=== PATIENT | female | born 1975 | race African-American/Black ===

== ENCOUNTER 2018-07-10 08:41 | Inpatient (IN) | payer BC, OTHER ==
[~2018-07-10 08:41] MED LIST: ROCURONIUM 50 MG INJ
[2018-07-10] MEDS ORDERED: POLYMYXIN/BACITRACIN 1L IRRIG (11:45)
[2018-07-10] MEDS: ALBUTEROL 0.083% (NEB) 2.5 MG/3 ML AMP HHN ×3 (12:25→21:21)
[2018-07-10] MEDS ORDERED: hydrALAzine 20 MG INJ IV ×2 (12:30→15:30)
[2018-07-10] MEDS ORDERED: ONDANSETRON 4 MG INJ IV (12:30)
[2018-07-10] MEDS ORDERED: niCARdipine 50 MG in SOD CHLORIDE 0.9% 480 ML IV (12:30)
[2018-07-10] MEDS ORDERED: FENTAnyl 50 MCG/ML VIAL IV ×5 (12:30→15:30)
[2018-07-10] MEDS ORDERED: IPRATROPIUM (NEB) 0.5 MG/2.5 ML AMP HHN (12:30)
[2018-07-10] MEDS ORDERED: ALBUTEROL 0.083% (NEB) 2.5 MG/3 ML AMP HHN (12:30)
[2018-07-10] MEDS ORDERED: LABETALOL HCL 20MG INJ IV ×2 (12:30→15:30)
[2018-07-10] MEDS ORDERED: ROCURONIUM 50 MG INJ (12:32)
[2018-07-10] MEDS ORDERED: MIDAZOLAM 1 MG/ML 2 ML INJ (12:32)
[2018-07-10] MEDS ORDERED: LIDOCAINE 1% (MDV) 20 ML INJ (12:32)
[2018-07-10] MEDS ORDERED: PROPOFOL 20 ML (12:32)
[2018-07-10] MEDS ORDERED: CEFAZOLIN 1 GM INJ (13:30)
[2018-07-10] MEDS ORDERED: DEXAMETHASONE 4 MG/ML 1 ML INJ ×2 (13:32→13:33)
[2018-07-10] MEDS ORDERED: ONDANSETRON 4 MG INJ (13:32)
[2018-07-10] MEDS: GELATIN SIZE 100 SPONGE (13:37)
[2018-07-10] MEDS: LIDOCAINE 1%/EPI 30 ML INJ (13:37)
[2018-07-10] MEDS: THROMBIN 5000 UNIT VIAL (13:37)
[2018-07-10] MEDS ORDERED: CEFAZOLIN 1 GM/50 ML (PMX) 50 ML IVPB (14:00)
[2018-07-10] MEDS ORDERED: SUGAMMADEX SODIUM 200 MG/2 ML VIAL IV (14:29)
[2018-07-10] MEDS ORDERED: MEPERIDINE 25 MG INJ IV (15:30)
[2018-07-10] MEDS: DEXTROSE 5%-LR 1,000 ML IV (16:52)
[2018-07-10] MEDS: FENTAnyl 50 MCG/ML VIAL IV ×3 (16:58→21:48)
[2018-07-10] MEDS: metFORMIN 500 MG TAB PO (17:35)
[2018-07-10] MEDS: KETOROLAC 30 MG INJ IV ×2 (17:41→23:34)
[2018-07-10] MEDS: DEXAMETHASONE 4 MG/ML 1 ML INJ IV ×2 (18:27→23:34)
[2018-07-10] MEDS: INSULIN ASPART [NOVOLOG] 3 ML PEN SC ×2 (18:31→20:34)
[2018-07-10] MEDS: LACTATED RINGER'S 1,000 ML IV (20:15)
[2018-07-10] MEDS: CYCLOBENZAPRINE 10 MG TAB PO (20:16)
[2018-07-10] MEDS: ONDANSETRON 4 MG INJ IV (21:06)
[2018-07-10] MEDS: CEFAZOLIN 1 GM/50 ML (PMX) 50 ML IVPB (21:06)
[2018-07-10] MEDS: 1/2 NS + KCL 20 MEQ 1,000 ML IV (21:06)
[2018-07-11] MEDS: ALBUTEROL 0.083% (NEB) 2.5 MG/3 ML AMP HHN ×6 (01:34→20:27)
[2018-07-11] MEDS: FENTAnyl 50 MCG/ML VIAL IV ×6 (01:47→16:27)
[2018-07-11] MEDS: ACCU-CHEK XX (01:52)
[2018-07-11] MEDS: DEXAMETHASONE 4 MG/ML 1 ML INJ IV ×3 (05:06→17:47)
[2018-07-11] MEDS: CEFAZOLIN 1 GM/50 ML (PMX) 50 ML IVPB ×2 (05:06→13:21)
[2018-07-11 05:31] LABS: WHITE BLOOD COUNT 11.8 10^3/ul (4.8-10.8)
[2018-07-11 05:31] LABS: ADD MAN DIFF? NO; BASOPHILS % 0.1 % (0.0-2.0); HEMATOCRIT 34.9 % (37.0-47.0); HEMOGLOBIN 11.4 g/dl (12.0-16.0); LYMPHOCYTES # 0.8 10^3/ul (0.8-2.9); LYMPHOCYTES % 7.1 % (15.0-51.0); MEAN CORPUSCULAR HGB CONC 32.7 g/dl (32.0-37.0); MEAN CORPUSCULAR VOLUME 79.7 fl (82.0-101.0); MEAN PLATELET VOLUME 10.2 fl (7.4-10.4); MONOCYTE # 0.2 10^3/ul (0.3-0.9); MONOCYTES % 1.6 % (0.0-11.0); NEUTROPHIL # 10.7 10^3/ul (1.6-7.5); NEUTROPHILS % 90.9 % (39.0-77.0); PLATELET COUNT 227 10^3/UL (140-415); RED BLOOD COUNT 4.38 10^6/ul (4.20-5.40); RED CELL DISTRIBUTION WIDTH 14.1 % (11.5-14.5)
[2018-07-11 06:18] LABS: ANION GAP 14 (8-16); BLOOD UREA NITROGEN 8 mg/dl (7-20); CALCIUM 8.4 mg/dl (8.4-10.2); CARBON DIOXIDE 23 mmol/L (21-31); CHLORIDE 105 mmol/L (97-110); CREATININE 0.64 mg/dl (0.44-1.00); GLUCOSE 245 mg/dl (70-220); POTASSIUM 4.6 mmol/L (3.5-5.1); SODIUM 137 mmol/L (135-144)
[2018-07-11] MEDS: 1/2 NS + KCL 20 MEQ 1,000 ML IV (06:30)
[2018-07-11] MEDS: KETOROLAC 30 MG INJ IV (07:53)
[2018-07-11] MEDS: metFORMIN 500 MG TAB PO ×2 (08:55→17:47)
[2018-07-11] MEDS: CYCLOBENZAPRINE 10 MG TAB PO ×2 (08:55→21:34)
[2018-07-11] MEDS: INSULIN ASPART [NOVOLOG] 3 ML PEN SC ×4 (08:57→21:00)
[2018-07-11] MEDS ORDERED: ACETAMINOPHEN 650MG/20.3ML CUP PO (10:30)
[2018-07-11] MEDS: ONDANSETRON 4 MG INJ IV ×2 (11:15→19:15)
[2018-07-11] MEDS: CEPASTAT LOZENGE MT (11:20)
[2018-07-11] MEDS: ACETAMINOPHEN 1000MG/100ML IV 100 ML IVPB ×2 (11:51→17:50)
[2018-07-11] MEDS ORDERED: FENTAnyl 50 MCG/ML VIAL (13:16)
[2018-07-11] MEDS: SOD CHLORIDE 0.9% 1,000 ML IV (13:20)
[2018-07-11] MEDS: ALBUTEROL/IPRATROPIUM (NEB) 3 ML AMP HHN (16:49)
[2018-07-11] MEDS ORDERED: ACETAMINOPHEN 325 MG TAB PO (17:00)
[2018-07-11] MEDS ORDERED: FENTAnyl (DRIP) 1000 mcg/100mL 100 ML IV (17:30)
[2018-07-11] MEDS: NPH, HUMAN INSULIN ISOPHANE 3ML VIAL SC (17:49)
[2018-07-11 18:35] LABS: HEMOGLOBIN A1C 8.2 % (0-5.9)
[2018-07-11] MEDS: ACETAMINOPHEN 325/HYDROC 7.5 15 ML CUP PO ×2 (19:08→21:09)
[2018-07-11] MEDS: GABAPENTIN (50 MG/ML PO SYG) PO (21:35)
[2018-07-11] MEDS: MEPERIDINE 100 MG INJ IV (22:41)
[2018-07-12] MEDS: ALBUTEROL 0.083% (NEB) 2.5 MG/3 ML AMP HHN ×6 (00:48→20:09)
[2018-07-12] MEDS: ACCU-CHEK XX (02:00)
[2018-07-12] MEDS: SOD CHLORIDE 0.9% 1,000 ML IV ×2 (02:50→06:21)
[2018-07-12 05:50] LABS: ADD MAN DIFF? NO
[2018-07-12 05:57] LABS: WHITE BLOOD COUNT 13.4 10^3/ul (4.8-10.8)
[2018-07-12 05:57] LABS: BASOPHILS % 0.1 % (0.0-2.0); HEMATOCRIT 30.4 % (37.0-47.0); HEMOGLOBIN 9.8 g/dl (12.0-16.0); LYMPHOCYTES % 7.8 % (15.0-51.0); MEAN CORPUSCULAR HEMOGLOBIN 25.7 pg (29.0-33.0); MEAN CORPUSCULAR HGB CONC 32.2 g/dl (32.0-37.0); MEAN CORPUSCULAR VOLUME 79.8 fl (82.0-101.0); MEAN PLATELET VOLUME 11.2 fl (7.4-10.4); MONOCYTE # 0.9 10^3/ul (0.3-0.9); MONOCYTES % 6.4 % (0.0-11.0); NEUTROPHIL # 11.4 10^3/ul (1.6-7.5); NEUTROPHILS % 85.2 % (39.0-77.0); PLATELET COUNT 217 10^3/UL (140-415); RED BLOOD COUNT 3.81 10^6/ul (4.20-5.40); RED CELL DISTRIBUTION WIDTH 14.8 % (11.5-14.5)
[2018-07-12 06:22] LABS: ANION GAP 9 (8-16); BLOOD UREA NITROGEN 9 mg/dl (7-20); CALCIUM 7.9 mg/dl (8.4-10.2); CARBON DIOXIDE 25 mmol/L (21-31); CHLORIDE 108 mmol/L (97-110); CREATININE 0.74 mg/dl (0.44-1.00); GLUCOSE 189 mg/dl (70-220); POTASSIUM 4.7 mmol/L (3.5-5.1); SODIUM 137 mmol/L (135-144)
[2018-07-12] MEDS: metFORMIN 500 MG TAB PO ×2 (07:59→17:56)
[2018-07-12] MEDS: INSULIN ASPART [NOVOLOG] 3 ML PEN SC ×4 (08:00→20:59)
[2018-07-12] MEDS: GABAPENTIN (50 MG/ML PO SYG) PO (09:00)
[2018-07-12] MEDS: MEPERIDINE 100 MG INJ IV (09:37)
[2018-07-12] MEDS: CYCLOBENZAPRINE 10 MG TAB PO ×2 (09:37→20:59)
[2018-07-12] MEDS: GABAPENTIN 100 MG CAP PO ×2 (12:45→20:59)
[2018-07-12] MEDS: MEPERIDINE 50 MG INJ IV ×3 (12:47→21:31)
[2018-07-13] MEDS: ALBUTEROL 0.083% (NEB) 2.5 MG/3 ML AMP HHN ×6 (01:31→20:01)
[2018-07-13] MEDS: ACCU-CHEK XX (01:55)
[2018-07-13] MEDS: MEPERIDINE 50 MG INJ IV ×5 (02:00→20:26)
[2018-07-13] MEDS: INSULIN ASPART [NOVOLOG] 3 ML PEN SC ×4 (07:50→21:00)
[2018-07-13] MEDS: CYCLOBENZAPRINE 10 MG TAB PO ×2 (08:50→20:26)
[2018-07-13] MEDS: GABAPENTIN 100 MG CAP PO ×3 (08:50→20:27)
[2018-07-13] MEDS: metFORMIN 500 MG TAB PO ×2 (08:51→18:35)
[2018-07-13] MEDS: DOCUSATE SODIUM 100 MG CAP PO (20:27)
[2018-07-14] MEDS: ALBUTEROL 0.083% (NEB) 2.5 MG/3 ML AMP HHN ×6 (00:42→20:50)
[2018-07-14] MEDS: ACCU-CHEK XX (01:03)
[2018-07-14] MEDS: MEPERIDINE 50 MG INJ IV ×4 (01:31→21:10)
[2018-07-14] MEDS: INSULIN ASPART [NOVOLOG] 3 ML PEN SC ×4 (07:50→21:00)
[2018-07-14] MEDS: metFORMIN 500 MG TAB PO ×2 (08:41→17:51)
[2018-07-14] MEDS: CYCLOBENZAPRINE 10 MG TAB PO ×2 (08:41→20:11)
[2018-07-14] MEDS: GABAPENTIN 100 MG CAP PO ×3 (08:41→20:11)
[2018-07-14] MEDS: DOCUSATE SODIUM 100 MG CAP PO ×2 (09:00→20:11)
[2018-07-14] MEDS: ALBUTEROL/IPRATROPIUM (NEB) 3 ML AMP HHN (10:24)
[2018-07-14] MEDS: ONDANSETRON 4 MG INJ IV (10:36)
[2018-07-15] MEDS: ALBUTEROL 0.083% (NEB) 2.5 MG/3 ML AMP HHN ×6 (00:26→21:00)
[2018-07-15] MEDS: ACCU-CHEK XX (02:00)
[2018-07-15] MEDS: MEPERIDINE 50 MG INJ IV ×4 (04:25→21:43)
[2018-07-15] MEDS: INSULIN ASPART [NOVOLOG] 3 ML PEN SC ×4 (07:50→20:27)
[2018-07-15] MEDS: DOCUSATE SODIUM 100 MG CAP PO ×3 (08:28→20:35)
[2018-07-15] MEDS: CYCLOBENZAPRINE 10 MG TAB PO ×2 (08:28→20:27)
[2018-07-15] MEDS: metFORMIN 500 MG TAB PO ×2 (08:28→17:47)
[2018-07-15] MEDS: GABAPENTIN 100 MG CAP PO ×3 (08:28→20:27)
[2018-07-15] MEDS: ONDANSETRON 4 MG INJ IV (11:54)
[2018-07-15] MEDS: HYDROCODONE/APAP (5/325) TAB PO (14:06)
[2018-07-15] MEDS: MEPERIDINE 50 MG INJ IM (18:29)
[2018-07-15] MEDS: MAGNESIUM HYDROXIDE 30ML CUP PO (20:32)
[2018-07-16] MEDS: ALBUTEROL 0.083% (NEB) 2.5 MG/3 ML AMP HHN ×6 (01:25→20:05)
[2018-07-16] MEDS: MEPERIDINE 50 MG INJ IV ×6 (01:56→23:51)
[2018-07-16] MEDS: ACCU-CHEK XX (02:00)
[2018-07-16 05:06] LABS: ADD MAN DIFF? NO
[2018-07-16 05:12] LABS: BASOPHILS % 0.5 % (0.0-2.0); EOSINOPHILS # 0.5 10^3/ul (0.0-0.5); EOSINOPHILS % 6.9 % (0.0-7.0); HEMATOCRIT 34.5 % (37.0-47.0); HEMOGLOBIN 10.7 g/dl (12.0-16.0); LYMPHOCYTES # 2.2 10^3/ul (0.8-2.9); LYMPHOCYTES % 30.1 % (15.0-51.0); MEAN CORPUSCULAR HEMOGLOBIN 25.8 pg (29.0-33.0); MEAN CORPUSCULAR VOLUME 83.1 fl (82.0-101.0); MEAN PLATELET VOLUME 10.1 fl (7.4-10.4); MONOCYTE # 0.7 10^3/ul (0.3-0.9); MONOCYTES % 8.8 % (0.0-11.0); NEUTROPHILS % 53.4 % (39.0-77.0); PLATELET COUNT 227 10^3/UL (140-415); RED BLOOD COUNT 4.15 10^6/ul (4.20-5.40); RED CELL DISTRIBUTION WIDTH 14.8 % (11.5-14.5)
[2018-07-16 05:12] LABS: WHITE BLOOD COUNT 7.4 10^3/ul (4.8-10.8)
[2018-07-16 05:38] LABS: ANION GAP 9 (8-16); BLOOD UREA NITROGEN 7 mg/dl (7-20); CALCIUM 8.6 mg/dl (8.4-10.2); CARBON DIOXIDE 29 mmol/L (21-31); CHLORIDE 103 mmol/L (97-110); CREATININE 0.77 mg/dl (0.44-1.00); GLUCOSE 210 mg/dl (70-220); POTASSIUM 4.3 mmol/L (3.5-5.1); SODIUM 137 mmol/L (135-144)
[2018-07-16] MEDS: metFORMIN 500 MG TAB PO ×2 (08:36→17:54)
[2018-07-16] MEDS: GABAPENTIN 100 MG CAP PO ×3 (08:37→21:38)
[2018-07-16] MEDS: DOCUSATE SODIUM 100 MG CAP PO ×2 (08:37→21:00)
[2018-07-16] MEDS: CYCLOBENZAPRINE 10 MG TAB PO ×3 (08:37→21:40)
[2018-07-16] MEDS: HYDROCODONE/APAP (5/325) TAB PO ×3 (08:38→21:48)
[2018-07-16] MEDS: INSULIN ASPART [NOVOLOG] 3 ML PEN SC ×4 (08:40→21:37)
[2018-07-16] MEDS: MAGNESIUM HYDROXIDE 30ML CUP PO ×2 (08:40→21:38)
[2018-07-17] MEDS: ALBUTEROL 0.083% (NEB) 2.5 MG/3 ML AMP HHN ×4 (00:30→13:00)
[2018-07-17] MEDS: ACCU-CHEK XX (02:00)
[2018-07-17] MEDS: HYDROCODONE/APAP (5/325) TAB PO (04:24)
[2018-07-17] MEDS: MEPERIDINE 50 MG INJ IV ×3 (04:28→13:13)
[2018-07-17] MEDS: CYCLOBENZAPRINE 10 MG TAB PO ×2 (06:12→14:00)
[2018-07-17] MEDS: INSULIN ASPART [NOVOLOG] 3 ML PEN SC ×2 (07:50→11:40)
[2018-07-17] MEDS: DOCUSATE SODIUM 100 MG CAP PO (09:00)
[2018-07-17] MEDS: GABAPENTIN 100 MG CAP PO ×2 (09:00→13:00)
[2018-07-17] MEDS: MAGNESIUM HYDROXIDE 30ML CUP PO (09:01)
[2018-07-17] MEDS: metFORMIN 500 MG TAB PO (09:11)
[2018-07-17] MEDS: ONDANSETRON 4 MG INJ IV (12:19)
== END 2018-07-17 14:14 | disposition home or self-care (01) | DRG 472 ==
LOC: REC 08:41 → MS1 07-12 10:30 → ICU 15:16
PROVIDERS: Neurological Surgery
PROC: 0RG10A0 Fusion of Cervical Vertebral Joint with Interbody Fusion Device, Anterior Approach, Anterior Column, Open Approach (ICD-10-PCS; principal; 2018-07-10 11:00)
PROC: 0RT30ZZ Resection of Cervical Vertebral Disc, Open Approach (ICD-10-PCS; 2018-07-10 11:00)
DX: M50.023 Cervical disc disorder at C6-C7 level with myelopathy (principal); M47.12 Other spondylosis with myelopathy, cervical region; E11.9 Type 2 diabetes mellitus without complications; M06.9 Rheumatoid arthritis, unspecified; M62.81 Muscle weakness (generalized); J45.909 Unspecified asthma, uncomplicated; M48.02 Spinal stenosis, cervical region
CPT/HCPCS: 72050; 80048; 82962; 83036; 85025; 86850; 86900; 86901; 87081; 88304; 92610; 94640; 94664; 97116; 97163; 97530